=== PATIENT | female | born 1945 | race Caucasian/White ===

== ENCOUNTER 2020-12-10 10:45 | Inpatient (IN) | payer MEDICARE, OTHER ==
[~2020-12-10] VITALS: Ht 165.1 cm; Wt 73.5 kg
[2020-12-10 11:23] LABS: HEMOGLOBIN 13.6 gm/dl (12.3-15.3); RED BLOOD COUNT 4.11 M/UL (4.00-5.10); WHITE BLOOD COUNT 11.5 K/UL (4.5-11.0)
[2020-12-10 11:47] LABS: BUN/CREATININE RATIO 20 (0-10)
[2020-12-10] MEDS ORDERED: MULTAQ 400 MG400 MG PO (18:08)
[2020-12-10] MEDS ORDERED: LANTUS SOL100 UNIT/1 SQ (18:08)
[2020-12-10] MEDS ORDERED: LEVOTHYROXINE112 MCG PO (18:09)
[2020-12-10] MEDS ORDERED: FUROSEMIDE40 MG PO (18:09)
[2020-12-10] MEDS ORDERED: ATORVASTATIN CA80 MG PO (18:09)
[2020-12-10] MEDS ORDERED: METOPROLOL SUCC50 MG PO (18:10)
[2020-12-10] MEDS ORDERED: LOSARTAN POTAS100 MG PO (18:10)
[2020-12-10] MEDS ORDERED: ELIQUIS5 MG PO (18:11)
[2020-12-10] MEDS ORDERED: NIFEDIPINE ER30 M1 PO (18:11)
[2020-12-10] MEDS ORDERED: POTASSIUM CHLO10 ME2 PO (18:11)
[2020-12-10] MEDS ORDERED: INSULIN LI100 UNIT/2 SQ (18:12)
[2020-12-10] MEDS ORDERED: PROTONIX 40 MG40 M1 PO (18:19)
[2020-12-10] MEDS ORDERED: ZYLOPRIM 100 M100 MG PO (18:20)
[2020-12-10] MEDS ORDERED: ZINC50 M2 PO (18:35)
[2020-12-10] MEDS ORDERED: VITAMIN D350 MC3 PO (18:35)
[2020-12-10] MEDS ORDERED: VITAMIN C500 M4 PO (18:35)
[2020-12-10] MEDS ORDERED: VITAMIN E1000 UNI1 PO (18:36)
[2020-12-11 01:24] LABS: HEMOGLOBIN 12.7 gm/dl (12.3-15.3); RED BLOOD COUNT 3.95 M/UL (4.00-5.10); WHITE BLOOD COUNT 12.1 K/UL (4.5-11.0)
[2020-12-11 01:55] LABS: BUN/CREATININE RATIO 28 (0-10)
[2020-12-13 03:09] LABS: BUN/CREATININE RATIO 31 (0-10)
[2020-12-13 03:19] LABS: RED BLOOD COUNT 3.29 M/UL (4.00-5.10)
[2020-12-14 02:39] LABS: BUN/CREATININE RATIO 31 (0-10)
[2020-12-14] MEDS ORDERED: LASIX20 MG PO (12:26)
[2020-12-14] MEDS ORDERED: LANTUS SOL100 UNIT/1 SQ (12:26)
[2020-12-14] MEDS ORDERED: AUGMENTIN 875-1 EACH PO (12:26)
[2020-12-16 03:35] LABS: HEMOGLOBIN 10.3 gm/dl (12.3-15.3); RED BLOOD COUNT 3.29 M/UL (4.00-5.10); WHITE BLOOD COUNT 8.4 K/UL (4.5-11.0)
[2020-12-16 03:48] LABS: BUN/CREATININE RATIO 31 (0-10)
[2020-12-16] MEDS ORDERED: ALDACTONE 25MG25 MG PO (09:36)
== END 2020-12-16 13:55 | disposition home health service (06) | DRG 291 ==
LOC: ER1 10:45 → PROG CARE 16:18 → CDU 16:18 → PROG CARE 12-11 20:06
PROVIDERS: Family Medicine; Internal Medicine; Physician Assistant; ADMIT Internal Medicine
DX: I11.0 Hypertensive heart disease with heart failure (principal); J96.01 Acute respiratory failure with hypoxia; J12.9 Viral pneumonia, unspecified; E87.3 Alkalosis; I50.33 Acute on chronic diastolic (congestive) heart failure; Z20.822 Contact with and (suspected) exposure to COVID-19; I25.10 Atherosclerotic heart disease of native coronary artery without angina pectoris; E03.9 Hypothyroidism, unspecified; I48.0 Paroxysmal atrial fibrillation; E11.9 Type 2 diabetes mellitus without complications; I49.5 Sick sinus syndrome; R01.1 Cardiac murmur, unspecified; I16.0 Hypertensive urgency; D69.6 Thrombocytopenia, unspecified; Z85.828 Personal history of other malignant neoplasm of skin; Z95.0 Presence of cardiac pacemaker; Z79.4 Long term (current) use of insulin; Z95.1 Presence of aortocoronary bypass graft; Z79.01 Long term (current) use of anticoagulants; Z79.899 Other long term (current) drug therapy
CPT/HCPCS: ECHO; 36415; 36600; 71045; 80048; 80053; 82550; 82553; 82803; 82962; 83036; 83605; 83735; 83874; 83880; 84132; 84484; 85025; 85027; 87040; 93005; 93306; 94664; 96365; 96367; 96372; 96375; 96376; 99285; G0378; J0360; J0456; J0696; J1100; J1940; J7030; Q9967; U0002

== ENCOUNTER → 2020-12-23 | Outpatient (CLI) | payer MEDICARE, OTHER ==
[~2020-12-23] MED LIST: ALDACTONE 25MG25 MG PO; ATORVASTATIN CA80 MG PO; AUGMENTIN 875-1 EACH PO; ELIQUIS5 MG PO; FUROSEMIDE40 MG PO; INSULIN LI100 UNIT/2 SQ; LANTUS SOL100 UNIT/1 SQ; LASIX20 MG PO; LEVOTHYROXINE112 MCG PO; LOSARTAN POTAS100 MG PO; METOPROLOL SUCC50 MG PO; MULTAQ 400 MG400 MG PO; NIFEDIPINE ER30 M1 PO; POTASSIUM CHLO10 ME2 PO; PROTONIX 40 MG40 M1 PO; VITAMIN C500 M4 PO; VITAMIN D350 MC3 PO; VITAMIN E1000 UNI1 PO; ZINC50 M2 PO; ZYLOPRIM 100 M100 MG PO
== END ==
LOC: LAB 14:28
PROVIDERS: Internal Medicine
DX: I10 Essential (primary) hypertension (principal); Z79.899 Other long term (current) drug therapy
CPT/HCPCS: 36415; 80048

== ENCOUNTER → 2021-01-29 | Outpatient (CLI) | payer MEDICARE, OTHER | LOC: RAD 15:36 | DX: I48.21 Permanent atrial fibrillation (principal) | CPT/HCPCS: 71046 ==

== ENCOUNTER → 2021-04-30 | Outpatient (CLI) | payer MEDICARE ==
[2021-04-30 10:13] LABS: HEMOGLOBIN 12.6 gm/dl (12.3-15.3); RED BLOOD COUNT 3.93 M/UL (4.00-5.10); WHITE BLOOD COUNT 4.8 K/UL (4.5-11.0)
[2021-04-30 10:32] LABS: BUN/CREATININE RATIO 21 (0-10)
== END ==
LOC: LAB 09:17
PROVIDERS: Emergency Medicine
DX: R53.83 Other fatigue (principal); I10 Essential (primary) hypertension; E03.8 Other specified hypothyroidism; E11.69 Type 2 diabetes mellitus with other specified complication; E55.9 Vitamin D deficiency, unspecified; R19.7 Diarrhea, unspecified; R11.0 Nausea
CPT/HCPCS: 36415; 80053; 83690; 85025

== ENCOUNTER → 2021-06-03 | Outpatient (CLI) | payer MEDICARE | LOC: EXRD 08:01 | DX: R10.11 Right upper quadrant pain (principal); K80.20 Calculus of gallbladder without cholecystitis without obstruction | CPT/HCPCS: 76705 ==

== ENCOUNTER → 2021-08-27 | Outpatient (CLI) | payer MEDICARE | LOC: EXRD 14:49 | DX: I65.23 Occlusion and stenosis of bilateral carotid arteries (principal) | CPT/HCPCS: 93880 ==

== ENCOUNTER 2022-01-06 11:22 | Emergency (ER) | payer MEDICARE ==
[~2022-01-06] VITALS: Ht 165.1 cm; Wt 68.9 kg
[2022-01-06 12:32] LABS: HEMOGLOBIN 12.3 gm/dl (12.3-15.3); RED BLOOD COUNT 3.96 M/UL (4.00-5.10)
[2022-01-06 12:59] LABS: BUN/CREATININE RATIO 18 (0-10)
[2022-01-06] MEDS ORDERED: DELSYM30 MG/5 ML PO (15:24)
== END 2022-01-06 16:02 | disposition home or self-care (01) ==
LOC: ER1 11:22
PROVIDERS: Physician Assistant Medical
DX: U07.1 COVID-19 (principal); I10 Essential (primary) hypertension; I25.10 Atherosclerotic heart disease of native coronary artery without angina pectoris; E11.9 Type 2 diabetes mellitus without complications; Z79.4 Long term (current) use of insulin; K21.9 Gastro-esophageal reflux disease without esophagitis
CPT/HCPCS: 71045; 80053; 81001; 82550; 82553; 83874; 83880; 84484; 85025; 87205; 93005; 99285; M0247; U0002

== ENCOUNTER 2022-01-11 15:59 | Emergency (ER) | payer MEDICARE ==
[~2022-01-11 15:59] MED LIST changes: +DELSYM30 MG/5 ML PO
[2022-01-11 17:01] LABS: HEMOGLOBIN 13.4 gm/dl (12.3-15.3); RED BLOOD COUNT 4.3 M/UL (4.00-5.10); WHITE BLOOD COUNT 6.7 K/UL (4.5-11.0)
[2022-01-11 17:23] LABS: BUN/CREATININE RATIO 22 (0-10)
[2022-01-11] MEDS ORDERED: ANTIVERT 12.512.5 MG PO (20:59)
== END 2022-01-11 21:16 | disposition home or self-care (01) ==
LOC: ER1 15:59
PROVIDERS: Family Medicine
DX: U07.1 COVID-19 (principal); E11.65 Type 2 diabetes mellitus with hyperglycemia; R42 Dizziness and giddiness; R53.1 Weakness; Z79.01 Long term (current) use of anticoagulants; Z95.0 Presence of cardiac pacemaker; Z95.1 Presence of aortocoronary bypass graft
CPT/HCPCS: 71045; 80053; 81001; 82550; 82553; 82962; 83605; 83735; 84439; 84443; 84484; 85025; 86140; 93005; 96374; 96375; 99284; J0360; J2405